=== PATIENT | female | born 1990 | race African-American/Black ===

== ENCOUNTER 2017-07-07 21:58 | Emergency (ER) | payer BC ==
[2017-07-07] MEDS ORDERED: predniSONE 20 MG TAB ONE (23:44)
== END 2017-07-07 23:58 | disposition home or self-care (01) ==
LOC: ERS 21:58
DX: S70.362A Insect bite (nonvenomous), left thigh, initial encounter (principal); L08.9 Local infection of the skin and subcutaneous tissue, unspecified
CPT/HCPCS: 99282; J7506

== ENCOUNTER 2017-12-21 17:23 | Emergency (ER) | payer BC | END 2017-12-21 19:14 | disposition left against medical advice (07) | LOC: ERS 17:23 | DX: Z53.21 Procedure and treatment not carried out due to patient leaving prior to being seen by health care provider (principal) ==

== ENCOUNTER 2022-05-12 12:50 | Emergency (ER) | payer MEDICAID, SELFPAY ==
[2022-05-12] MEDS ORDERED: Ibuprofen 200 MG TAB ONE (14:13)
== END 2022-05-12 15:31 | disposition home or self-care (01) ==
LOC: ERS 12:50
DX: M25.561 Pain in right knee (principal); W18.30XA Fall on same level, unspecified, initial encounter